=== PATIENT | male | born 1955 | race African-American/Black ===

== ENCOUNTER 2018-08-06 07:46 | Outpatient (CLI) | payer MEDICARE, MEDICAID ==
--- NOTE | 2018-08-06 09:20 | RAD ---
LUMBAR SPINE TWO VIEWS: History: Lumbago with sciatica right side. FINDINGS: Lumbar vertebrae maintain normal height and alignment. Moderate degenerative changes are seen through out the lumbar spine. Loss of disc space is noted at L4-5 and to a lesser degree at L3-4. Prominent a nterior osteophytes. Facet hypertrophy. No evidence of listhesis. IMPRESSION: Moderate degenerative change apparent. POS: [facility]
== END 2018-08-06 07:47 | disposition home or self-care (01) ==
LOC: BICRAD 07:46
PROVIDERS: ATTEND Family Medicine
DX: M54.41 Lumbago with sciatica, right side (principal); M47.816 Spondylosis without myelopathy or radiculopathy, lumbar region
CPT/HCPCS: 72100

== ENCOUNTER 2020-06-05 20:47 | Emergency (ER) | payer MEDICARE, MEDICAID ==
--- NOTE | 2020-06-05 21:35 | RAD ---
Chest one view HISTORY: Cough. COMPARISON: 03/03/2019. FINDINGS: Cardiac silhouette is magnified by projection. Pulmonary vasculature is unremarkable. Mediastinum is midline. No lobar consolidation or evidence of pneumothorax. IMPRESSION : No abnormalities are demonstrated.
[2020-06-05] MEDS ORDERED: Dexamethasone 10 MG/ML VIAL ONE (21:36)
== END 2020-06-05 22:28 | disposition home or self-care (01) ==
LOC: ERS 20:47
DX: J45.901 Unspecified asthma with (acute) exacerbation (principal); I10 Essential (primary) hypertension; Z79.899 Other long term (current) drug therapy
CPT/HCPCS: 71045; J1100; J7620

== ENCOUNTER 2020-10-18 16:44 | Emergency (ER) | payer MEDICARE, MEDICAID ==
[2020-10-18] MEDS ORDERED: Gentamicin 80 MG/2 ML VIAL ONE (19:00)
[2020-10-18] MEDS ORDERED: Bacitracin Zinc Ointment 30 gm TUBE ONE (19:16)
[2020-10-18] MEDS ORDERED: Lidocaine 2% PF 5 ML VIAL ONE (19:16)
[2020-10-18] MEDS ORDERED: Betamet Acet/Betamet Na Ph 30 MG/5 ML VIAL ONE (19:16)
[2020-10-18] MEDS ORDERED: Bupivacaine PF 0.5% 30 ML VIAL ONE (19:16)
[2020-10-18] MEDS ORDERED: Heparin 25,000 units/D5W 0 ML ONE (19:16)
[2020-10-18] MEDS ORDERED: Hetastarch 6% 500 ML 0 ML ONE (19:16)
[2020-10-18] MEDS ORDERED: Sodium Chloride 0.9% 10 ML ONE (19:16)
[2020-10-18 19:25] LABS: ALT (SGPT) 23 U/L (8-55); AST (SGOT) 34 U/L (5-34); Albumin 4.4 g/dL (3.4-4.8); Alkaline Phosphatase 111 U/L (40-110); Anion Gap 16 mmol/L (10-20); BUN (Urea Nitrogen) 17 mg/dL (8.4-25.7); Bilirubin, Total 0.4 mg/dL (0.2-1.2); Calc. Creatinine Clearance 0 mL/min (70-130); Calcium 9.3 mg/dL (7.8-10.44); Carbon Dioxide 25 mmol/L (23-31); Chloride 102 mmol/L (98-107); Globulin 3.5 g/dL (2.4-3.5); Glucose 102 mg/dL (80-115); Potassium 4.3 mmol/L (3.5-5.1); Protein, Total 7.9 g/dL (5.8-8.1); Sodium 139 mmol/L (136-145)
[2020-10-18 19:53] LABS: SARS-CoV-2 NAA Rapid Test Not Detected (NotDetected)
[2020-10-18 19:55] LABS: #Basophils 0.1 thou/uL (0.0-0.2); #Eosinphils 0.2 thou/uL (0.0-0.7); #Lymphocytes 1.5 thou/uL (1.20-3.40); #Monocytes 0.7 thou/uL (0.11-0.59); #Neutrophils 3.5 thou/uL (1.40-6.50); %Basophils 1.3 % (0.0-1.0); %Lymphocytes 25.2 % (21.0-51.0); %Monocytes 11.8 % (0.0-10.0); %Neutrophils 58.7 % (42.0-75.0); Mean Corpuscular HGB CONC 32.1 g/dL (32.0-36.0); Mean Corpuscular Hemoglobin 26.6 pg (27.0-31.0); Mean Platelet Volume 7.4 fL (7.4-10.4); Platelet Count 216 thou/uL (130-400); RBC Distribution Width 12.3 % (11.5-14.5); Red Blood Cell (RBC) Count 6.01 mill/uL (4.70-6.10)
[2020-10-18] MEDS ORDERED: Bupivacaine 0.5% 10 ML VIAL ONE (20:17)
== END 2020-10-18 22:37 | disposition home or self-care (01) ==
LOC: ERS 16:44
DX: S61.211A Laceration without foreign body of left index finger without damage to nail, initial encounter (principal); I10 Essential (primary) hypertension; Z79.899 Other long term (current) drug therapy; W45.8XXA Other foreign body or object entering through skin, initial encounter
CPT/HCPCS: 0240U; 73140; 80053; 85025; 85652; 96365; 96367; 99284; J0690; J0702; J1580; J1644; J2001; J3490; S0020

== ENCOUNTER 2020-11-06 21:29 | Emergency (ER) | payer MEDICARE, OTHER ==
[2020-11-06] MEDS ORDERED: predniSONE 20 MG TAB ONE (22:45)
== END 2020-11-06 23:52 | disposition home or self-care (01) ==
LOC: ERS 21:29
DX: J06.9 Acute upper respiratory infection, unspecified (principal); I10 Essential (primary) hypertension; Z79.899 Other long term (current) drug therapy
CPT/HCPCS: 71045; J7512; J7620

== ENCOUNTER 2021-05-08 08:21 | Emergency (ER) | payer MEDICARE, OTHER ==
[2021-05-08 14:54] LABS: SARS-CoV-2 PCR by NAA Not Detected (NotDetected)
== END 2021-05-08 09:21 | disposition home or self-care (01) ==
LOC: ERS 08:21
DX: J20.9 Acute bronchitis, unspecified (principal); Z20.822 Contact with and (suspected) exposure to COVID-19; I10 Essential (primary) hypertension
CPT/HCPCS: 71045; 99283; U0003; U0005

== ENCOUNTER 2021-05-21 10:55 | Emergency (ER) | payer OTHER, MEDICARE ==
[2021-05-21] MEDS ORDERED: Ketorolac Tromethamine 30 MG/ML VIAL ONE (11:32)
== END 2021-05-21 11:45 | disposition home or self-care (01) ==
LOC: ERS 10:55
DX: M54.50 Low back pain, unspecified (principal); I10 Essential (primary) hypertension; Z79.899 Other long term (current) drug therapy; V89.2XXA Person injured in unspecified motor-vehicle accident, traffic, initial encounter
CPT/HCPCS: 96372; 99283; J1885

== ENCOUNTER 2021-06-30 03:03 | Emergency (ER) | payer MEDICARE, MEDICAID | END 2021-06-30 04:39 | disposition home or self-care (01) | LOC: ERS 03:03 | DX: J20.9 Acute bronchitis, unspecified (principal); I10 Essential (primary) hypertension; J45.909 Unspecified asthma, uncomplicated | CPT/HCPCS: 71045 ==

== ENCOUNTER 2021-08-16 08:31 | Emergency (ER) | payer MEDICARE, MEDICAID ==
[2021-08-16 14:08] LABS: SARS-CoV-2 PCR by NAA Not Detected (NotDetected)
== END 2021-08-16 09:32 | disposition home or self-care (01) ==
LOC: ERS 08:31
DX: M79.10 Myalgia, unspecified site (principal); Z20.822 Contact with and (suspected) exposure to COVID-19; I10 Essential (primary) hypertension
CPT/HCPCS: 71046; U0003; U0005

== ENCOUNTER 2021-08-19 07:45 | Emergency (ER) | payer MEDICARE, MEDICAID ==
[2021-08-19 16:33] LABS: SARS-CoV-2 PCR by NAA Not Detected (NotDetected)
== END 2021-08-19 09:05 | disposition home or self-care (01) ==
LOC: ERS 07:45
DX: J18.9 Pneumonia, unspecified organism (principal); I10 Essential (primary) hypertension; E11.9 Type 2 diabetes mellitus without complications; Z20.822 Contact with and (suspected) exposure to COVID-19; Z79.84 Long term (current) use of oral hypoglycemic drugs; Z79.899 Other long term (current) drug therapy
CPT/HCPCS: 71045; 99283; U0003; U0005

== ENCOUNTER 2021-09-12 08:21 | Emergency (ER) | payer MEDICARE, MEDICAID ==
[2021-09-12 09:08] LABS: #Lymphocytes 1.8 thou/uL (1.20-3.40); #Monocytes 0.7 thou/uL (0.11-0.59); #Neutrophils 4.8 thou/uL (1.40-6.50); %Basophils 0.4 % (0.0-1.0); %Eosinophils 11.6 % (0.0-10.0); %Lymphocytes 21.9 % (21.0-51.0); %Monocytes 8.7 % (0.0-10.0); %Neutrophils 57.4 % (42.0-75.0); Hemoglobin 15.5 g/dL (14.0-18.0); Mean Corpuscular HGB CONC 31.5 g/dL (32.0-36.0); Mean Corpuscular Hemoglobin 26.9 pg (27.0-31.0); Mean Corpuscular Volume 85.3 fL (78.0-98.0); Mean Platelet Volume 6.8 fL (7.4-10.4); Platelet Count 237 thou/uL (130-400); RBC Distribution Width 12.2 % (11.5-14.5); Red Blood Cell (RBC) Count 5.76 mill/uL (4.70-6.10); White Blood Cell (WBC) Count 8.3 thou/uL (4.8-10.8)
[2021-09-12 09:26] LABS: ALT (SGPT) 24 U/L (8-55); AST (SGOT) 23 U/L (5-34); Albumin 4.2 g/dL (3.4-4.8); Alkaline Phosphatase 128 U/L (40-110); Anion Gap 8 mmol/L (10-20); BUN (Urea Nitrogen) 16 mg/dL (8.4-25.7); Bilirubin, Total 0.5 mg/dL (0.2-1.2); Calc. Creatinine Clearance 0 mL/min (70-130); Calcium 9.4 mg/dL (7.8-10.44); Carbon Dioxide 30 mmol/L (23-31); Chloride 106 mmol/L (98-107); Globulin 2.8 g/dL (2.4-3.5); Glucose 161 mg/dL (80-115); Potassium 3.9 mmol/L (3.5-5.1); Sodium 140 mmol/L (136-145)
== END 2021-09-12 10:56 | disposition home or self-care (01) ==
LOC: ERS 08:21 → EEVIPCON 08:21 → ERS 10:56
DX: R07.89 Other chest pain (principal); I10 Essential (primary) hypertension; E11.9 Type 2 diabetes mellitus without complications; Z79.84 Long term (current) use of oral hypoglycemic drugs
CPT/HCPCS: 36415; 71045; 80053; 84484; 85025; 93005

== ENCOUNTER 2022-01-09 22:27 | Emergency (ER) | payer MEDICARE, MEDICAID | END 2022-01-09 23:54 | disposition home or self-care (01) | LOC: ERS 22:27 | DX: U07.1 COVID-19 (principal); I10 Essential (primary) hypertension; E11.9 Type 2 diabetes mellitus without complications; Z79.84 Long term (current) use of oral hypoglycemic drugs | CPT/HCPCS: 71046 ==

== ENCOUNTER 2022-01-28 18:20 | Emergency (ER) | payer MEDICARE, MEDICAID ==
[2022-01-28 18:54] LABS: #Basophils 0.1 thou/uL (0.0-0.2); #Eosinphils 0.8 thou/uL (0.0-0.7); #Lymphocytes 1.6 thou/uL (1.20-3.40); #Monocytes 0.9 thou/uL (0.11-0.59); #Neutrophils 4.2 thou/uL (1.40-6.50); %Basophils 0.8 % (0.0-1.0); %Lymphocytes 20.7 % (21.0-51.0); %Monocytes 11.9 % (0.0-10.0); %Neutrophils 55.6 % (42.0-75.0); Hemoglobin 15.2 g/dL (14.0-18.0); Mean Corpuscular Hemoglobin 28.3 pg (27.0-31.0); Mean Corpuscular Volume 85.7 fL (78.0-98.0); Mean Platelet Volume 6.8 fL (7.4-10.4); Platelet Count 204 thou/uL (130-400); RBC Distribution Width 12.3 % (11.5-14.5); Red Blood Cell (RBC) Count 5.37 mill/uL (4.70-6.10); White Blood Cell (WBC) Count 7.6 thou/uL (4.8-10.8)
[2022-01-28 19:10] LABS: ALT (SGPT) 20 U/L (8-55); AST (SGOT) 26 U/L (5-34); Alkaline Phosphatase 133 U/L (40-110); Anion Gap 13 mmol/L (10-20); BUN (Urea Nitrogen) 10 mg/dL (8.4-25.7); Bilirubin, Total 0.5 mg/dL (0.2-1.2); CK (CPK) 413 U/L (30-200); Calc. Creatinine Clearance 0 mL/min (70-130); Calcium 9.1 mg/dL (7.8-10.44); Carbon Dioxide 26 mmol/L (23-31); Chloride 104 mmol/L (98-107); Estimated GFR 91; Globulin 2.5 g/dL (2.4-3.5); Glucose 122 mg/dL (80-115); Lipase 48 U/L (8-78); Potassium 3.3 mmol/L (3.5-5.1); Protein, Total 6.5 g/dL (5.8-8.1); Sodium 140 mmol/L (136-145)
[2022-01-28] MEDS ORDERED: Potassium Chloride 20 MEQ TAB ONE (19:34)
== END 2022-01-28 21:07 | disposition home or self-care (01) ==
LOC: ERS 18:20
DX: R53.1 Weakness (principal); E87.6 Hypokalemia; I10 Essential (primary) hypertension; E11.9 Type 2 diabetes mellitus without complications
CPT/HCPCS: 36415; 71045; 80053; 82550; 83690; 84484; 85025; 93005; 99285

== ENCOUNTER 2022-01-31 11:16 | Emergency (ER) | payer MEDICARE, MEDICAID ==
[2022-01-31] MEDS ORDERED: predniSONE 20 MG TAB ONE (12:24)
[2022-01-31 12:27] LABS: #Eosinphils 0.9 thou/uL (0.0-0.7); #Lymphocytes 1.8 thou/uL (1.20-3.40); #Neutrophils 5.2 thou/uL (1.40-6.50); %Basophils 0.5 % (0.0-1.0); %Eosinophils 10.5 % (0.0-10.0); %Lymphocytes 19.6 % (21.0-51.0); %Monocytes 11.6 % (0.0-10.0); %Neutrophils 57.7 % (42.0-75.0); Hemoglobin 16.4 g/dL (14.0-18.0); Mean Corpuscular HGB CONC 31.5 g/dL (32.0-36.0); Mean Corpuscular Hemoglobin 27.1 pg (27.0-31.0); Mean Corpuscular Volume 85.9 fL (78.0-98.0); Platelet Count 242 thou/uL (130-400); RBC Distribution Width 12.4 % (11.5-14.5); Red Blood Cell (RBC) Count 6.04 mill/uL (4.70-6.10)
[2022-01-31] MEDS ORDERED: Albuterol Sulfate 2.5 mg/0.5 ml Neb ONE ×2 (12:31→14:18)
[2022-01-31 12:48] LABS: ALT (SGPT) 22 U/L (8-55); AST (SGOT) 31 U/L (5-34); Albumin 4.4 g/dL (3.4-4.8); Alkaline Phosphatase 167 U/L (40-110); Anion Gap 13 mmol/L (10-20); BUN (Urea Nitrogen) 11 mg/dL (8.4-25.7); Bilirubin, Total 0.5 mg/dL (0.2-1.2); Calc. Creatinine Clearance 0 mL/min (70-130); Calcium 10.1 mg/dL (7.8-10.44); Carbon Dioxide 27 mmol/L (23-31); Chloride 104 mmol/L (98-107); Estimated GFR 80; Glucose 133 mg/dL (80-115); Lipase 41 U/L (8-78); Potassium 4.3 mmol/L (3.5-5.1); Protein, Total 7.4 g/dL (5.8-8.1); Sodium 140 mmol/L (136-145)
[2022-01-31 16:14] LABS: Bacteria/HPF None Seen HPF (None Seen); Bilirubin Negative (Negative); Blood, Urine Negative (Negative); Clarity Clear (Clear); Glucose, Urine (Dipstick) Normal (Negative); Ketone, Urine Trace mg/dL (Negative); Leukocyte Negative Leu/uL (Negative); Nitrite Negative (Negative); Protein, Urine (Dipstick) 30 mg/dL (Neg-Trace); RBC/HPF None Seen HPF (0-3); Specific Gravity, Urine 1.024 (1.002-1.036); Squamous Epithelial None Seen HPF (0-3); Urobilinogen Normal mg/dL (Less than 2); WBC/HPF 0-3 HPF (0-3); pH, Urine 5.5 (5.0-9.0)
== END 2022-01-31 16:57 | disposition home or self-care (01) ==
LOC: ERS 11:16
DX: J44.1 Chronic obstructive pulmonary disease with (acute) exacerbation (principal); E11.9 Type 2 diabetes mellitus without complications; I10 Essential (primary) hypertension; Z79.84 Long term (current) use of oral hypoglycemic drugs
CPT/HCPCS: 36415; 71045; 80053; 81003; 81015; 83690; 83880; 84484; 85025; 93005; 94640; J7512; J7611; J7620

== ENCOUNTER 2022-07-07 09:24 | Emergency (ER) | payer OTHER, MEDICAID | END 2022-07-07 10:41 | disposition home or self-care (01) | LOC: ERS 09:24 | DX: J30.9 Allergic rhinitis, unspecified (principal); E11.9 Type 2 diabetes mellitus without complications; I10 Essential (primary) hypertension; Z79.84 Long term (current) use of oral hypoglycemic drugs; Z79.899 Other long term (current) drug therapy | CPT/HCPCS: 71045 ==

== ENCOUNTER 2022-07-09 14:10 | Emergency (ER) | payer OTHER, MEDICAID ==
[2022-07-09] MEDS ORDERED: Dexameth. Sod Phosp. 10 MG/ML (CHEMO USE ONLY) ONE (14:45)
== END 2022-07-09 15:05 | disposition home or self-care (01) ==
LOC: ERS 14:10
DX: J20.9 Acute bronchitis, unspecified (principal); I10 Essential (primary) hypertension; E11.9 Type 2 diabetes mellitus without complications
CPT/HCPCS: 71045; J1100

== ENCOUNTER 2022-12-05 08:00 | Emergency (ER) | payer OTHER, MEDICAID ==
[2022-12-05 09:44] LABS: SARS-CoV-2 NAA Rapid Test Not Detected (NotDetected)
== END 2022-12-05 10:53 | disposition home or self-care (01) ==
LOC: ERS 08:00
DX: J18.9 Pneumonia, unspecified organism (principal); I10 Essential (primary) hypertension; E11.9 Type 2 diabetes mellitus without complications; Z20.822 Contact with and (suspected) exposure to COVID-19
CPT/HCPCS: 0240U; 71045; 99283

== ENCOUNTER 2023-01-13 18:10 | Emergency (ER) | payer MEDICAID, MEDICARE, OTHER ==
[2023-01-13] MEDS ORDERED: Ketorolac Tromethamine 30 MG/ML VIAL ONE (18:32)
== END 2023-01-13 19:29 | disposition home or self-care (01) ==
LOC: ERS 18:10
DX: S93.402A Sprain of unspecified ligament of left ankle, initial encounter (principal); I10 Essential (primary) hypertension; E11.9 Type 2 diabetes mellitus without complications; W18.30XA Fall on same level, unspecified, initial encounter
CPT/HCPCS: 96372; J1885

== ENCOUNTER 2024-08-18 19:48 | Emergency (ER) | payer OTHER, MEDICAID ==
[2024-08-18 20:35] LABS: #Basophils Less than 0.03 10x3/uL (0.0-0.2); %Basophils 0.3 % (0.0-1.0); %Eosinophils 0.5 % (0.0-10.0); %Lymphocytes 19.3 % (21.0-51.0); %Monocytes 11.2 % (0.0-10.0); %Neutrophils 68.3 % (42.0-75.0); Hematocrit 47.8 % (42.0-52.0); Hemoglobin 15.2 g/dL (14.0-18.0); Mean Corpuscular HGB CONC 31.8 g/dL (32.0-36.0); Mean Corpuscular Hemoglobin 25.8 pg (27.0-31.0); Mean Platelet Volume 8.8 fL (7.4-10.4); Platelet Count 206 10x3/uL (130-400); RBC Distribution Width 13.3 % (11.5-14.5)
[2024-08-18 20:58] LABS: ALT (SGPT) 19 U/L (Less than 45); AST (SGOT) 30 U/L (11-34); Albumin 4.4 g/dL (3.1-4.5); Alkaline Phosphatase 112 U/L (40-110); Anion Gap 13 mmol/L (10-20); BUN (Urea Nitrogen) 15 mg/dL (8.4-25.7); Bilirubin, Total 0.3 mg/dL (0.3-1.2); Calc. Creatinine Clearance 0 mL/min (70-130); Calcium 9.3 mg/dL (7.8-10.44); Carbon Dioxide 24 mmol/L (23-31); Chloride 107 mmol/L (98-107); Estimated GFR 92; Globulin 2.8 g/dL (2.4-3.5); Glucose 98 mg/dL (80-115); Potassium 3.7 mmol/L (3.5-5.1); Protein, Total 7.2 g/dL (5.8-8.1); Sodium 140 mmol/L (136-145)
[2024-08-18 22:53] LABS: Bacteria/HPF None Seen HPF (None Seen); Bilirubin Negative (Negative); Blood, Urine Negative (Negative); CAUTI Indications for Culture Alt mental st,lethar; Clarity Clear (Clear); Glucose, Urine (Dipstick) Normal (Negative); Ketone, Urine Negative (Negative); Leukocyte Negative Leu/uL (Negative); Nitrite Negative (Negative); Protein, Urine (Dipstick) 10 mg/dL (Neg-Trace); RBC/HPF None Seen HPF (0-3); Squamous Epithelial 0-3 HPF (0-3); WBC/HPF None Seen HPF (0-3); pH, Urine 6.5 (5.0-9.0)
[2024-08-18 22:54] LABS: Urine Culture Reflex No No
== END 2024-08-18 22:35 | disposition home or self-care (01) ==
LOC: ERS 19:48
DX: H61.22 Impacted cerumen, left ear (principal); I10 Essential (primary) hypertension; E11.9 Type 2 diabetes mellitus without complications
CPT/HCPCS: 36415; 36416; 69209; 70450; 71045; 80053; 81001; 84484; 85025; 93005